=== PATIENT | female | born 1950 | race Caucasian/White ===

== ENCOUNTER 2021-09-12 11:05 | Day surgery (SDC) | payer OTHER, MEDICAID, SELFPAY ==
[~2021-09-12] VITALS: Ht 165.1 cm; Wt 73.0 kg
[~2021-09-12 11:05] MED LIST: CEFAZOLIN SOD 1 GM in D5W 50 ML IV ONE
[2021-09-12] MEDS ORDERED: hydrALAZINE HCL 20 MG/ML VIAL IVP PRN (13:45)
[2021-09-12] MEDS ORDERED: LR 1,000 ML IV SCH (13:45)
[2021-09-12] MEDS ORDERED: MIDAZOLAM HCL 2 MG/2 ML VIAL (VERSED) IVP PRN (13:45)
[2021-09-12] MEDS ORDERED: LABETALOL 100 MG/ 20ML VIAL IVP PRN (13:45)
[2021-09-12] MEDS ORDERED: METOCLOPRAMIDE HCL 10 MG/2 ML VIAL IVP PRN (13:45)
[2021-09-12] MEDS ORDERED: MEPERIDINE HCL/PF 25 MG/ML DISP.SYRIN IVP PRN (13:45)
[2021-09-12] MEDS ORDERED: HYDROmorphone 1 MG/ML INJ. CARTRIDGE IVP PRN ×2 (13:45)
[2021-09-12] MEDS ORDERED: HYDROcodone/ACETAMIN 5-325 MG TAB (NORCO/ VICODIN) PO PRN ×2 (14:30)
[2021-09-12] MEDS ORDERED: D5/0.45 NS 1,000 ML IV SCH (14:30)
[2021-09-12 17:12] VITALS: BP_SYST 148
== END 2021-09-12 16:45 | disposition home or self-care (01) ==
LOC: SDS 11:05 → SMU 11:06 → SDS 16:45
PROVIDERS: ATTEND Colon & Rectal Surgery
DX: K43.0 Incisional hernia with obstruction, without gangrene (principal); I25.10 Atherosclerotic heart disease of native coronary artery without angina pectoris; E11.9 Type 2 diabetes mellitus without complications; E78.5 Hyperlipidemia, unspecified; I10 Essential (primary) hypertension; Z95.1 Presence of aortocoronary bypass graft; Z86.718 Personal history of other venous thrombosis and embolism; Z79.899 Other long term (current) drug therapy; Z20.822 Contact with and (suspected) exposure to COVID-19
CPT/HCPCS: 36415; 49566; 49568; 82962; 87426; C1781; J0690; J7060; U0003

== ENCOUNTER 2023-11-14 00:22 | Inpatient (IN) | payer OTHER, MEDICAID ==
[~2023-11-14] VITALS: Ht 165.1 cm; Wt 76.7 kg
[2023-11-14 00:22] VITALS: BP_SYST 170; PULSE 76; RESP 18; TEMP 97.6; O2SAT 96
[2023-11-14] MEDS ORDERED: iohexoL 350 mgI/mL, 100 ML INFUS..BTL IV ONE (00:37)
[2023-11-14 00:46] LABS: BASOPHILS % (AUTO) 0.4 % (0.0-2.0); EOSINOPHILS % (AUTO) 0.2 % (0.0-4.0); HEMATOCRIT 34.4 % (36-48); HEMOGLOBIN 11.4 g/dL (12.0-16.0); LYMPHOCYTES # (AUTO) 1.5 K/uL (1.0-5.5); LYMPHOCYTES % (AUTO) 21.1 % (20.5-51.5); MEAN CORPUSCULAR HEMOGLOBIN 29 pg (27-31); MEAN CORPUSCULAR HGB CONC 33 % (32-36); MEAN CORPUSCULAR VOLUME 88 fL (79.0-98.0); MONOCYTES # (AUTO) 1.2 K/uL (0.0-1.0); MONOCYTES % (AUTO) 16.5 % (1.7-9.3); NEUTROPHILS # (AUTO) 4.3 K/uL (1.8-7.7); NEUTROPHILS % (AUTO) 61.8 % (40.0-70.0); PLATELET COUNT (AUTO) 158 K/uL (130-430); RED BLOOD CELL COUNT(AUTO) 3.92 MIL/uL (4.2-6.2); RED CELL DISTRIBUTION WIDTH 14.8 % (9.0-15.0)
[2023-11-14 00:55] LABS: ANION GAP 11 (5-15); CALCIUM 8.7 mg/dL (8.4-11.0); CARBON DIOXIDE 24 mmol/L (23-29); CHLORIDE 107 mmol/L (98-107); CREATININE 2.15 mg/dL (0.55-1.30); GLUCOSE 161 mg/dL (74-106); POTASSIUM 4.4 mmol/L (3.5-5.1); SODIUM SERUM 142 mmol/L (136-145); UREA NITROGEN, BLOOD 23 mg/dL (8-21)
[2023-11-14 00:57] LABS: PROTHROMBIN TIME 10.5 SECS (9.5-12.5)
[2023-11-14 01:04] LABS: ALCOHOL, BLOOD < 3 mg/dL (<10)
[2023-11-14] MEDS: ASPIRIN 325 MG TABLET PO ONE (01:42)
[2023-11-14 02:18] LABS: BARBITURATE, URINE NEGATIVE (NEG <=200); BENZODIAZEPINE, URINE NEGATIVE (NEG <=150); CANNABINOID, URINE NEGATIVE (NEG <=50); COCAINE, URINE NEGATIVE (NEG <=150); METHAMPHETAMINES SCREEN,URINE NEGATIVE (NEG <=500); OPIATE, URINE NEGATIVE (NEG <=100); PHENCYCLIDINE SCREEN,URINE NEGATIVE (NEG <=25); UR TRICYCLIC ANTIDEPRESSANTS NEGATIVE (NEG <=300); URINE AMPHETAMINE NEGATIVE (NEG <=500); URINE METHADONE NEGATIVE (NEG <=200); URINE OXYCODONE SCREEN NEGATIVE (NEG <=100)
[2023-11-14 02:22] LABS: BILIRUBIN,URINE NEGATIVE (NEGATIVE); BLOOD, URINE NEGATIVE (NEGATIVE); CLARITY/URINE CLEAR (CLEAR); COLOR,URINE YELLOW (YELLOW); GLUCOSE,URINE 3+ (NEGATIVE); KETONES,URINE NEGATIVE (NEGATIVE); LEUKOCYTE ESTERASE ,URINE NEGATIVE (NEGATIVE); NITRITE, URINE NEGATIVE (NEGATIVE); PH,URINE 7.5 (5.0-8.0); PROTEIN URINE 2+ (NEGATIVE); UROBILINOGEN,URINE 0.2 (0.2-1.0)
[2023-11-14 02:39] LABS: RBC,URINE 0-3 /HPF (0-3); WBC,URINE 0-3 /HPF (0-3)
[2023-11-14 02:40] LABS: BACTERIA,URINE None Seen /HPF (None Seen)
[2023-11-14] MEDS ORDERED: DAPA5TAB PO (03:35)
[2023-11-14] MEDS ORDERED: AMLO5TAB4 PO (03:35)
[2023-11-14] MEDS ORDERED: IBUP-1969 PO (03:35)
[2023-11-14] MEDS ORDERED: SODI650T PO (03:35)
[2023-11-14] MEDS ORDERED: FURO-150 PO (03:35)
[2023-11-14] MEDS ORDERED: PRO40 PO (03:35)
[2023-11-14] MEDS ORDERED: IRBE75TA29 PO (03:35)
[2023-11-14] MEDS ORDERED: METO25TA3 PO (03:35)
[2023-11-14] MEDS ORDERED: LIP80 PO (03:35)
[2023-11-14] MEDS ORDERED: ALEN10TA25 PO (03:35)
[2023-11-14] MEDS ORDERED: CEL20 PO (03:35)
[2023-11-14] MEDS ORDERED: GABA-529 PO (03:35)
[2023-11-14] MEDS ORDERED: ACETAMINOPHEN 325 MG TABLET PO PRN ×2 (08:00→10:15)
[2023-11-14] MEDS ORDERED: NALOXONE HCL 0.4 MG/ML AMP (NARCAN) IVP PRN (08:00)
[2023-11-14] MEDS ORDERED: ONDANSETRON HCL 4 MG/2 ML VIAL IVP PRN (08:00)
[2023-11-14] MEDS ORDERED: HYDROcodone/ACETAMIN 10-325 MG TAB PO PRN (08:00)
[2023-11-14] MEDS ORDERED: MORPHINE 2 MG/ML INJ. SYRINGE IVP PRN (08:00)
[2023-11-14 09:28] LABS: BASOPHILS % (AUTO) 0.6 % (0.0-2.0); EOSINOPHILS % (AUTO) 0.2 % (0.0-4.0); HEMATOCRIT 35.3 % (36-48); HEMOGLOBIN 11.5 g/dL (12.0-16.0); LYMPHOCYTES # (AUTO) 1.6 K/uL (1.0-5.5); LYMPHOCYTES % (AUTO) 27.6 % (20.5-51.5); MEAN CORPUSCULAR HEMOGLOBIN 29 pg (27-31); MEAN CORPUSCULAR HGB CONC 33 % (32-36); MEAN CORPUSCULAR VOLUME 89 fL (79.0-98.0); MONOCYTES # (AUTO) 1.1 K/uL (0.0-1.0); MONOCYTES % (AUTO) 19.2 % (1.7-9.3); NEUTROPHILS # (AUTO) 3.1 K/uL (1.8-7.7); NEUTROPHILS % (AUTO) 52.4 % (40.0-70.0); PLATELET COUNT (AUTO) 155 K/uL (130-430); RED BLOOD CELL COUNT(AUTO) 3.96 MIL/uL (4.2-6.2); RED CELL DISTRIBUTION WIDTH 14.5 % (9.0-15.0); WHITE BLOOD COUNT (AUTO) 5.9 K/uL (4.8-10.8)
[2023-11-14 09:47] LABS: ALANINE AMINOTRANSFERASE 10 U/L (12-78); ALBUMIN 2.7 g/dL (3.4-4.8); ANION GAP 10 (5-15); ASPARTATE AMINOTRANSFERASE 6 U/L (10-37); CALCIUM 8.4 mg/dL (8.4-11.0); CARBON DIOXIDE 26 mmol/L (23-29); CHLORIDE 108 mmol/L (98-107); GLUCOSE 135 mg/dL (74-106); POTASSIUM 4.5 mmol/L (3.5-5.1); SODIUM SERUM 144 mmol/L (136-145); TOTAL BILIRUBIN 0.3 mg/dL (0.0-1.0); TOTAL PROTEIN, SERUM 6.5 g/dL (6.4-8.3); UREA NITROGEN, BLOOD 22 mg/dL (8-21)
[2023-11-14 11:14] LABS: CHOLESTEROL 133 mg/dL (<200); HDL CHOLESTEROL 58 mg/dL (>55); TRIGLYCERIDES 89 mg/dL (30-150)
[2023-11-14] MEDS ORDERED: LORazepam 2 MG/ML VIAL ONE (13:40)
[2023-11-14 14:13] VITALS: BP_SYST 147; PULSE 82; RESP 14; TEMP 98.6; O2SAT 95
[2023-11-14 14:55] VITALS: O2SAT 97
[2023-11-14 15:47] VITALS: BP_SYST 150; PULSE 84; RESP 16; TEMP 98.9; O2SAT 96
[2023-11-14] MEDS: HYDROcodone/ACETAMIN 5-325 MG TAB (NORCO/ VICODIN) PO PRN (17:01)
[2023-11-14] MEDS: ATORVASTATIN 20 MG TABLET PO ONE (17:01)
[2023-11-14] MEDS: GABAPENTIN 100 MG CAPSULE PO ONE (17:02)
[2023-11-14] MEDS: CITALOPRAM HYDROBROMIDE 20 MG TABLET PO ONE (17:02)
[2023-11-14] MEDS: amLODIPine BESYLATE 5 MG TABLET PO ONE (17:02)
[2023-11-14] MEDS: NACL 0.9% 1,000 ML IV SCH (17:03)
[2023-11-14] MEDS: guaiFENesin/DEXTROMETHORPHAN 10 ML UDC PO PRN (17:57)
[2023-11-14] MEDS: BENZOCAINE/MENTHOL 1 EACH LOZENGE MM PRN (17:57)
[2023-11-14 20:10] VITALS: O2SAT 99
[2023-11-14 20:11] VITALS: BP_SYST 195; PULSE 92; RESP 16; TEMP 97.6; O2SAT 100
[2023-11-14] MEDS: GABAPENTIN 100 MG CAPSULE PO SCH (21:07)
[2023-11-14] MEDS ORDERED: hydrALAZINE HCL 20 MG/ML VIAL IVP PRN (23:15)
[2023-11-14] MEDS: CHOLECALCIFEROL (VITAMIN D3) 5,000 UNIT TABLET PO SCH (23:15)
[2023-11-14] MEDS: ASCORBIC ACID 500 MG TABLET PO SCH (23:15)
[2023-11-15] VITALS: BP_SYST 142; PULSE 80; RESP 17; TEMP 98.4; O2SAT 91
[2023-11-15] MEDS: DEXAMETHASONE SOD PHOSPHATE 10 MG/ML VIAL IVP SCH (00:20)
[2023-11-15 06:08] LABS: BASOPHILS % (AUTO) 0.2 % (0.0-2.0); HEMATOCRIT 33.6 % (36-48); HEMOGLOBIN 11.2 g/dL (12.0-16.0); LYMPHOCYTES # (AUTO) 0.8 K/uL (1.0-5.5); LYMPHOCYTES % (AUTO) 8.1 % (20.5-51.5); MEAN CORPUSCULAR HEMOGLOBIN 30 pg (27-31); MEAN CORPUSCULAR HGB CONC 33 % (32-36); MEAN CORPUSCULAR VOLUME 89 fL (79.0-98.0); MONOCYTES # (AUTO) 0.3 K/uL (0.0-1.0); MONOCYTES % (AUTO) 3.4 % (1.7-9.3); NEUTROPHILS # (AUTO) 8.7 K/uL (1.8-7.7); NEUTROPHILS % (AUTO) 88.3 % (40.0-70.0); PLATELET COUNT (AUTO) 162 K/uL (130-430); RED BLOOD CELL COUNT(AUTO) 3.79 MIL/uL (4.2-6.2); RED CELL DISTRIBUTION WIDTH 14.5 % (9.0-15.0); WHITE BLOOD COUNT (AUTO) 9.8 K/uL (4.8-10.8)
[2023-11-15 06:44] LABS: ALBUMIN 2.6 g/dL (3.4-4.8); ANION GAP 10 (5-15); CALCIUM 8.2 mg/dL (8.4-11.0); CARBON DIOXIDE 23 mmol/L (23-29); CHLORIDE 107 mmol/L (98-107); CREATININE 2.13 mg/dL (0.55-1.30); GLUCOSE 227 mg/dL (74-106); POTASSIUM 4.6 mmol/L (3.5-5.1); SODIUM SERUM 140 mmol/L (136-145); TOTAL BILIRUBIN 0.4 mg/dL (0.0-1.0); TOTAL PROTEIN, SERUM 6.5 g/dL (6.4-8.3); UREA NITROGEN, BLOOD 31 mg/dL (8-21)
[2023-11-15 07:34] LABS: ASPARTATE AMINOTRANSFERASE 18 U/L (10-37)
[2023-11-15 07:35] LABS: ALANINE AMINOTRANSFERASE 20 U/L (12-78)
[2023-11-15 08:45] VITALS: O2SAT 98
[2023-11-15] MEDS: ATORVASTATIN 20 MG TABLET PO SCH (09:56)
[2023-11-15] MEDS: ASPIRIN 81 MG TAB.CHEW PO SCH (09:57)
[2023-11-15] MEDS: amLODIPine BESYLATE 5 MG TABLET PO SCH (09:57)
[2023-11-15] MEDS: CITALOPRAM HYDROBROMIDE 20 MG TABLET PO SCH (09:58)
[2023-11-15 11:30] VITALS: BP_SYST 152; PULSE 79; RESP 18; TEMP 98; O2SAT 98
[2023-11-15] MEDS ORDERED: BISACODYL 10 MG/SUPPOSITORY RC PRN (11:45)
[2023-11-15 17:53] VITALS: BP_SYST 164; PULSE 81; RESP 19; TEMP 97.9; O2SAT 96
[2023-11-15 20:00] VITALS: BP_SYST 157; PULSE 76; RESP 18; TEMP 97.8; O2SAT 94
[2023-11-15] MEDS: POLYETHYLENE GLYCOL 3350, 17 GM/ POWD.PACK PO PRN (20:19)
[2023-11-15] MEDS: INSULIN GLARGINE 100 UNITS/ML, 10 ML VIAL SUBCUT SCH (20:39)
[2023-11-16 00:47] VITALS: BP_SYST 154; PULSE 75; RESP 15; TEMP 98.2; O2SAT 95
[2023-11-16 06:15] LABS: BASOPHILS % (AUTO) 0.1 % (0.0-2.0); HEMATOCRIT 32.5 % (36-48); HEMOGLOBIN 10.9 g/dL (12.0-16.0); LYMPHOCYTES % (AUTO) 14.1 % (20.5-51.5); MEAN CORPUSCULAR HEMOGLOBIN 30 pg (27-31); MEAN CORPUSCULAR HGB CONC 34 % (32-36); MEAN CORPUSCULAR VOLUME 88 fL (79.0-98.0); MONOCYTES # (AUTO) 0.2 K/uL (0.0-1.0); MONOCYTES % (AUTO) 3.6 % (1.7-9.3); NEUTROPHILS # (AUTO) 5.7 K/uL (1.8-7.7); NEUTROPHILS % (AUTO) 82.2 % (40.0-70.0); PLATELET COUNT (AUTO) 155 K/uL (130-430); RED BLOOD CELL COUNT(AUTO) 3.68 MIL/uL (4.2-6.2); RED CELL DISTRIBUTION WIDTH 14.3 % (9.0-15.0); WHITE BLOOD COUNT (AUTO) 6.9 K/uL (4.8-10.8)
[2023-11-16 06:38] LABS: ALANINE AMINOTRANSFERASE 18 U/L (12-78); ALBUMIN 2.3 g/dL (3.4-4.8); ANION GAP 10 (5-15); CALCIUM 7.8 mg/dL (8.4-11.0); CARBON DIOXIDE 21 mmol/L (23-29); CHLORIDE 108 mmol/L (98-107); CREATININE 1.87 mg/dL (0.55-1.30); GLUCOSE 236 mg/dL (74-106); POTASSIUM 4.4 mmol/L (3.5-5.1); SODIUM SERUM 139 mmol/L (136-145); TOTAL BILIRUBIN 0.3 mg/dL (0.0-1.0); TOTAL PROTEIN, SERUM 5.9 g/dL (6.4-8.3); UREA NITROGEN, BLOOD 38 mg/dL (8-21)
[2023-11-16 07:34] LABS: ASPARTATE AMINOTRANSFERASE 5 U/L (10-37)
[2023-11-16 08:00] VITALS: O2SAT 95
[2023-11-16 08:37] VITALS: BP_SYST 160; PULSE 72; RESP 18; TEMP 97.4; O2SAT 95
[2023-11-16 12:49] VITALS: BP_SYST 134; PULSE 78; RESP 18; TEMP 98.1; O2SAT 96
[2023-11-16] MEDS ORDERED: GUAI10LI14 PO (16:15)
[2023-11-16] MEDS ORDERED: ASC500 PO (16:15)
[2023-11-16] MEDS ORDERED: ASA81 PO (16:15)
[2023-11-16] MEDS ORDERED: CHOL500013 PO (16:15)
[2023-11-16] MEDS ORDERED: INSU100V9 SUBCUT (16:15)
[2023-11-16 16:36] VITALS: BP_SYST 154; PULSE 77; RESP 16; TEMP 98.3; O2SAT 96
[2023-11-16 17:01] VITALS: BP_SYST 154; PULSE 77; RESP 16; TEMP 98.3; O2SAT 96
[2023-11-17] MEDS ORDERED: amLODIPine BESYLATE 5 MG TABLET PO SCH (09:00)
== END 2023-11-16 18:58 | disposition home health service (06) | DRG 67 ==
LOC: SED 00:22 → STU 03:54 → SMU 10:45 → STU 19:51
PROVIDERS: ADMIT Family Medicine; ATTEND Family Medicine
DX: I65.23 Occlusion and stenosis of bilateral carotid arteries (principal); E43 Unspecified severe protein-calorie malnutrition; U07.1 COVID-19; N17.9 Acute kidney failure, unspecified; E11.22 Type 2 diabetes mellitus with diabetic chronic kidney disease; E11.65 Type 2 diabetes mellitus with hyperglycemia; N18.32 Chronic kidney disease, stage 3b; I12.9 Hypertensive chronic kidney disease with stage 1 through stage 4 chronic kidney disease, or unspecified chronic kidney disease; Z79.899 Other long term (current) drug therapy; Z68.28 Body mass index [BMI] 28.0-28.9, adult; Z79.4 Long term (current) use of insulin; Z79.82 Long term (current) use of aspirin
CPT/HCPCS: 36415; 70450; 70496; 70498; 70551; 71045; 80048; 80053; 80061; 80307; 81000; 81001; 81015; 82948; 83037; 84484; 85025; 85610; 85730; 86886; 86900; 86901; 93005; 93306; 95816; 97110-GP; 97116-GP; 97530-GP; 99291; G0378; G0482; J1100; J1815; J2060; Q9967